=== PATIENT | female | born 1990 | race Two or more races ===

== ENCOUNTER 2017-12-24 17:26 | Emergency (ER) | payer MEDICAID, OTHER ==
[~2017-12-24] VITALS: Ht 165.1 cm; Wt 99.2 kg
[2017-12-24 18:30] LABS: CULTURE INDICATED? YES; MICROSCOPIC INDICATED
[2017-12-24 18:41] LABS: ALBUMIN 3.8 g/dL (3.4-5.0); ANION GAP 6 mmol/L (5-15); CALCIUM 8.4 mg/dL (8.5-10.1); CHLORIDE 108 mmol/L (98-107)
[2017-12-24 18:46] LABS: ALANINE AMINOTRANSFERASE 41 U/L (12-78); ALKALINE PHOSPHATASE 77 U/L (45-117); BILIRUBIN,TOTAL 0.6 mg/dL (0.2-1.0); CREATININE 0.84 mg/dL (0.55-1.02); TOTAL PROTEIN 7.6 g/dL (6.4-8.2)
[2017-12-24 19:09] LABS: MEAN CORPUSCULAR HEMOGLOBIN 28.9 pg (27.0-34.8); MEAN CORPUSCULAR HGB CONC 33.2 g/dL (32.4-35.8); MEAN CORPUSCULAR VOLUME 87.2 fL (80-100); MEAN PLATELET VOLUME 10.8 fL (7.4-10.4); PLATELET COUNT 217 x10^3/uL (130-400); RED BLOOD COUNT 4.33 x10^6/uL (3.82-5.3); RED CELL DISTRIBUTION WIDTH 13.5 % (9.6-15.2)
[2017-12-24 19:11] LABS: BASOPHILS # (AUTO) 0.12 x10^3/uL (0-0.1); BASOPHILS % (AUTO) 1 % (0-1); EOSINOPHILS # (AUTO) 0.11 x10^3/uL (0-0.4); EOSINOPHILS % (AUTO) 1 % (1-7); LYMPHOCYTES # (AUTO) 2.78 x10^3/uL (1-3.4); LYMPHOCYTES % (AUTO) 31 % (22-44); MD SCAN; MONOCYTES # (AUTO) 0.51 x10^3/uL (0.2-0.8); MONOCYTES % (AUTO) 6 % (2-9); NEUTROPHILS # (AUTO) 5.34 x10^3/uL (1.8-6.8); NEUTROPHILS % (AUTO) 60 % (42-75)
[2017-12-24 21:03] VITALS: BP 132/70
== END 2017-12-24 21:05 | disposition home or self-care (01) ==
LOC: ED 20:35
DX: O20.0 Threatened abortion (principal); N30.90 Cystitis, unspecified without hematuria; Z88.0 Allergy status to penicillin
CPT/HCPCS: 36415; 76801; 80053; 81001; 84702; 85025; 86901; 87077; 87086; 87186; 99285

== ENCOUNTER 2018-03-12 21:06 | Inpatient (IN) | payer MEDICAID ==
[~2018-03-12] VITALS: Ht 165.1 cm; Wt 99.6 kg
[2018-03-12] MEDS ORDERED: ONDANSETRON 2MG/ML, 2ML ONE (21:49)
[2018-03-12] MEDS ORDERED: MORPHINE SULFATE 4 MG/ML, 1ML ONE ×2 (21:49→23:06)
[2018-03-12] MEDS ORDERED: ONDANSETRON ODT 4 MG PO ONE (22:00)
[2018-03-12] MEDS ORDERED: SODIUM CHLORIDE FLUSH 10ML SYR IVF ONE (22:00)
[2018-03-12] MEDS: MORPHINE SULFATE 4 MG/ML, 1ML IVPush PRN ×2 (22:05→23:15)
[2018-03-12 22:17] LABS: BASOPHILS # (AUTO) 0.04 x10^3/uL (0-0.1); BASOPHILS % (AUTO) 0 % (0-1); EOSINOPHILS # (AUTO) 0.03 x10^3/uL (0-0.4); EOSINOPHILS % (AUTO) 0 % (1-7); LYMPHOCYTES # (AUTO) 2.13 x10^3/uL (1-3.4); LYMPHOCYTES % (AUTO) 16 % (22-44); MD NO; MEAN CORPUSCULAR HGB CONC 33.3 g/dL (32.4-35.8); MEAN CORPUSCULAR VOLUME 87.1 fL (80-100); MEAN PLATELET VOLUME 11.2 fL (7.4-10.4); MONOCYTES # (AUTO) 0.81 x10^3/uL (0.2-0.8); MONOCYTES % (AUTO) 6 % (2-9); NEUTROPHILS # (AUTO) 10.07 x10^3/uL (1.8-6.8); NEUTROPHILS % (AUTO) 77 % (42-75); PLATELET COUNT 164 x10^3/uL (130-400); RED BLOOD COUNT 4.16 x10^6/uL (3.82-5.3); RED CELL DISTRIBUTION WIDTH 13.7 % (9.6-15.2)
[2018-03-12 22:27] LABS: CHLORIDE 107 mmol/L (98-107)
[2018-03-12 22:28] LABS: ALANINE AMINOTRANSFERASE 42 U/L (12-78); ANION GAP 5 mmol/L (5-15); CALCIUM 8.8 mg/dL (8.5-10.1); CREATININE 0.81 mg/dL (0.55-1.02)
[2018-03-12] MEDS ORDERED: ONDANSETRON 2MG/ML, 2ML IVPush ONE (22:30)
[2018-03-12 22:32] LABS: ALKALINE PHOSPHATASE 68 U/L (45-117); BILIRUBIN,TOTAL 0.8 mg/dL (0.2-1.0); TOTAL PROTEIN 7.5 g/dL (6.4-8.2)
[2018-03-12] MEDS ORDERED: CIPROFLOXACIN/PMX 400MG/200ML 200 ML ONE (23:16)
[2018-03-12] MEDS ORDERED: METRONIDAZOLE PMX 500MG/100ML 100 ML IV ONE (23:30)
[2018-03-12] MEDS ORDERED: ONDANSETRON 2MG/ML, 2ML IVPush PRN (23:30)
[2018-03-12] MEDS ORDERED: morphine SULFATE 10 MG/ML, 1ML IVPush PRN (23:30)
[2018-03-12] MEDS ORDERED: POLYETHYLENE GLYCOL 17 GM PACKET PO PRN (23:30)
[2018-03-12] MEDS ORDERED: OXYcodone/APAP 5/325MG TABLET PO PRN (23:30)
[2018-03-12] MEDS ORDERED: hydrALAzine 20 MG/ML, 1ML IVPush PRN (23:30)
[2018-03-12] MEDS ORDERED: ACETAMINOPHEN 325 MG TABLET PO PRN (23:30)
[2018-03-12] MEDS ORDERED: ONDANSETRON ODT 4 MG PO PRN (23:30)
[2018-03-12] MEDS ORDERED: HYDROmorphone 2 MG/ML, 1ML IVPush PRN (23:30)
[2018-03-12] MEDS ORDERED: DOCUSATE 100 MG CAPSULE PO PRN (23:30)
[2018-03-12] MEDS ORDERED: CIPROFLOXACIN/PMX 400MG/200ML 200 ML IV ONE (23:30)
[2018-03-12 23:58] VITALS: BP 113/63
[2018-03-13 00:12] LABS: FREE T4 (FREE THYROXINE) 1.01 ng/dL (0.76-1.46); THYROID STIMULATING HORMONE 0.655 mIU/L (0.358-3.740)
[2018-03-13 00:15] LABS: HEMOGLOBIN A1C 5.1 % (4.2-6.3)
[2018-03-13] MEDS: D5%-0.9% NACL+KCL 20MEQ 1,000 ML IV SCH ×2 (01:37→13:00)
[2018-03-13] MEDS: CEFOXITIN 1,000 MG in DEXTROSE 5% 50 ML IV SCH ×3 (01:38→18:11)
[2018-03-13 03:00] VITALS: BP 121/73
[2018-03-13] MEDS: METRONIDAZOLE PMX 500MG/100ML 100 ML IV SCH ×3 (03:03→20:55)
[2018-03-13 05:20] LABS: BASOPHILS # (AUTO) 0.04 x10^3/uL (0-0.1); BASOPHILS % (AUTO) 0 % (0-1); EOSINOPHILS # (AUTO) 0.02 x10^3/uL (0-0.4); EOSINOPHILS % (AUTO) 0 % (1-7); LYMPHOCYTES % (AUTO) 18 % (22-44); MD NO; MEAN CORPUSCULAR HEMOGLOBIN 29.2 pg (27.0-34.8); MEAN CORPUSCULAR HGB CONC 33.6 g/dL (32.4-35.8); MEAN CORPUSCULAR VOLUME 86.9 fL (80-100); MEAN PLATELET VOLUME 11.8 fL (7.4-10.4); MONOCYTES # (AUTO) 0.84 x10^3/uL (0.2-0.8); MONOCYTES % (AUTO) 7 % (2-9); NEUTROPHILS # (AUTO) 8.86 x10^3/uL (1.8-6.8); NEUTROPHILS % (AUTO) 75 % (42-75); PLATELET COUNT 155 x10^3/uL (130-400); RED BLOOD COUNT 4.19 x10^6/uL (3.82-5.3)
[2018-03-13 05:33] LABS: CALCIUM 8.5 mg/dL (8.5-10.1); CHLORIDE 108 mmol/L (98-107)
[2018-03-13 05:38] LABS: ALANINE AMINOTRANSFERASE 37 U/L (12-78); ALBUMIN 3.4 g/dL (3.4-5.0); ALKALINE PHOSPHATASE 51 U/L (45-117); ANION GAP 7 mmol/L (5-15); BILIRUBIN,TOTAL 0.9 mg/dL (0.2-1.0); CHOL/HDL RATIO 2.2; CHOLESTEROL, TOTAL 98 mg/dL (140-239); CREATININE 0.73 mg/dL (0.55-1.02); HDL CHOL % 46 % (28-40); HDL CHOLESTEROL (DIRECT) 45 mg/dL (40-60); LDL CHOLESTEROL,CALCULATED 44 mg/dL (54-169); TOTAL PROTEIN 6.6 g/dL (6.4-8.2); TRIGLYCERIDES 44 mg/dL (50-200); VLDL CHOLESTEROL 9 mg/dL (0-25)
[2018-03-13 08:14] VITALS: BP 105/69
[2018-03-13 11:57] LABS: MICROSCOPIC AUTO
[2018-03-13 11:59] LABS: CULTURE INDICATED? YES
[2018-03-13] MEDS ORDERED: EPINEPHRINE 1 MG/ML, 1ML ONE (14:12)
[2018-03-13] MEDS ORDERED: BUPIVACAINE/PF 0.5% ONE (14:12)
[2018-03-13] MEDS ORDERED: MIDAZOLAM 1 MG/ML, 2ML ONE (14:12)
[2018-03-13] MEDS ORDERED: FENTANYL PF 250 MCG/5ML ONE (14:13)
[2018-03-13] MEDS ORDERED: ONDANSETRON 2MG/ML, 2ML IV PRN ×2 (15:00→17:30)
[2018-03-13] MEDS ORDERED: FENTANYL PF 100 MCG/2ML IV PRN (15:00)
[2018-03-13] MEDS ORDERED: MEPERIDINE/PF 25MG/0.5ML IVPush PRN (15:00)
[2018-03-13] MEDS ORDERED: HYDROmorphone 1 MG/ML, 1ML IV PRN (15:00)
[2018-03-13] MEDS ORDERED: OXYcodone 5 MG/5 ML ORAL.SOL UDC PO PRN (15:00)
[2018-03-13] MEDS ORDERED: GLYCOPYRROLATE 0.2MG/1ML, 5ML ONE (15:21)
[2018-03-13] MEDS ORDERED: SUCCINYLCHOLINE 20 MG/ML, 10ML ONE (15:21)
[2018-03-13] MEDS ORDERED: PROPOFOL 10 MG/ML, 20ML ONE (15:21)
[2018-03-13] MEDS ORDERED: DEXAMETHASONE 4 MG/ML, 1ML ONE (15:21)
[2018-03-13] MEDS ORDERED: NEOSTIGMINE 1 MG/ML, 10ML ONE (15:21)
[2018-03-13] MEDS ORDERED: ONDANSETRON 2MG/ML, 2ML ONE (15:21)
[2018-03-13] MEDS ORDERED: ROCURONIUM 10MG/ML,5ML ONE (15:21)
[2018-03-13] MEDS ORDERED: CEFAZOLIN 1,000 MG ONE (15:21)
[2018-03-13] MEDS ORDERED: OXYcodone 5 MG/5 ML ORAL.SOL UDC ONE (16:20)
[2018-03-13] MEDS ORDERED: OXYcodone IR 5MG TABLET PO PRN (17:30)
[2018-03-13] MEDS ORDERED: LACTATED RINGERS 1,000 ML IV SCH (17:30)
[2018-03-13] MEDS ORDERED: morphine SULFATE 10 MG/ML, 1ML IV PRN (17:30)
[2018-03-13] MEDS: KETOROLAC 30 MG/1 ML IV SCH (18:11)
[2018-03-13 19:45] VITALS: BP 106/58
[2018-03-13] MEDS: ACETAMINOPHEN 500 MG TABLET PO SCH (20:55)
[2018-03-13] MEDS ORDERED: ALBUTEROL SULFATE 2.5 MG/3 ML NPPB PRN (22:00)
[2018-03-14] MEDS: KETOROLAC 30 MG/1 ML IV SCH ×3 (00:42→12:00)
[2018-03-14 00:55] VITALS: BP 98/56
[2018-03-14] MEDS: CEFOXITIN 1,000 MG in DEXTROSE 5% 50 ML IV SCH ×2 (01:58→10:43)
[2018-03-14] MEDS: ACETAMINOPHEN 500 MG TABLET PO SCH ×2 (02:58→09:16)
[2018-03-14] MEDS: METRONIDAZOLE PMX 500MG/100ML 100 ML IV SCH ×2 (03:59→12:00)
[2018-03-14 04:57] VITALS: BP 108/64
[2018-03-14 08:37] VITALS: BP 110/70
== END 2018-03-14 14:23 | disposition home or self-care (01) | DRG 781 ==
LOC: ED 23:08 → EDIP 23:10 → 4NOR 23:40
PROVIDERS: ADMIT Internal Medicine; ATTEND Internal Medicine
PROC: 0FT44ZZ Resection of Gallbladder, Percutaneous Endoscopic Approach (ICD-10-PCS; principal; 2018-03-13 15:00)
DX: O99.611 Diseases of the digestive system complicating pregnancy, first trimester (principal); K80.00 Calculus of gallbladder with acute cholecystitis without obstruction; F12.90 Cannabis use, unspecified, uncomplicated; K82.8 Other specified diseases of gallbladder; D72.829 Elevated white blood cell count, unspecified; N83.8 Other noninflammatory disorders of ovary, fallopian tube and broad ligament; Z87.440 Personal history of urinary (tract) infections; Z90.721 Acquired absence of ovaries, unilateral; Z72.89 Other problems related to lifestyle; Z88.0 Allergy status to penicillin; Z3A.14 14 weeks gestation of pregnancy
CPT/HCPCS: 36415; 99285; J3490; 74181; 76700; 76801; 80053; 80061; 81001; 83036; 83690; 83735; 84439; 84443; 84702; 85025; 87086; 88304; 96374; 96375; 96376; J0171; J0690; J0744; J1100; J1885; J2250; J2405; J2704; J2710; J3010; J0330; J0694; J3480; J7120

== ENCOUNTER 2019-06-10 11:19 | Emergency (ER) | payer SELFPAY ==
[~2019-06-10] VITALS: Ht 165.1 cm; Wt 90.7 kg
--- NOTE | 2019-06-10 11:21 | NUR ---
CALLED FOR TRIAGE X1. PT IN BATHROOM.
[2019-06-10] MEDS ORDERED: ONDANSETRON ODT 4 MG PO ONE ×2 (11:30→12:30)
[2019-06-10] MEDS ORDERED: ONDANSETRON ODT 4 MG ONE (11:31)
[2019-06-10 12:52] LABS: BASOPHILS # (AUTO) 0.03 x10^3/uL (0-0.1); BASOPHILS % (AUTO) 1 % (0-1); EOSINOPHILS % (AUTO) 0 % (1-7); LYMPHOCYTES # (AUTO) 0.62 x10^3/uL (1-3.4); LYMPHOCYTES % (AUTO) 9 % (22-44); MD NO; MEAN CORPUSCULAR HEMOGLOBIN 30.1 pg (27.0-34.8); MEAN CORPUSCULAR HGB CONC 33.4 g/dL (32.4-35.8); MEAN CORPUSCULAR VOLUME 90.2 fL (80-100); MEAN PLATELET VOLUME 9.7 fL (7.4-10.4); MONOCYTES # (AUTO) 0.57 x10^3/uL (0.2-0.8); MONOCYTES % (AUTO) 9 % (2-9); NEUTROPHILS # (AUTO) 5.42 x10^3/uL (1.8-6.8); NEUTROPHILS % (AUTO) 82 % (42-75); PLATELET COUNT 143 x10^3/uL (130-400); RED BLOOD COUNT 4.08 x10^6/uL (3.82-5.3); RED CELL DISTRIBUTION WIDTH 12.7 % (9.6-15.2)
[2019-06-10] MEDS ORDERED: ACETAMINOPHEN 500 MG TABLET ONE (12:59)
[2019-06-10] MEDS ORDERED: ACETAMINOPHEN 500 MG TABLET PO ONE (13:00)
[2019-06-10 13:05] LABS: ALBUMIN 3.7 g/dL (3.4-5.0); ANION GAP 5 mmol/L (5-15); CALCIUM 8.2 mg/dL (8.5-10.1); CHLORIDE 109 mmol/L (98-107); CREATININE 0.94 mg/dL (0.55-1.02)
[2019-06-10 13:23] VITALS: BP 103/58
--- NOTE | 2019-06-10 13:33 | NUR ---
TASK RN: PT RESTING ON GURNEY. NADN. HERNDON.
== END 2019-06-10 14:21 | disposition home or self-care (01) ==
LOC: ED 13:50
DX: A08.4 Viral intestinal infection, unspecified (principal); B34.9 Viral infection, unspecified
CPT/HCPCS: 36415; 80048; 82040; 84703; 85025; 99283; Q0162

== ENCOUNTER 2021-02-06 19:09 | Emergency (ER) | payer MEDICAID ==
[~2021-02-06] VITALS: Ht 165.1 cm; Wt 103.9 kg
--- NOTE | 2021-02-06 19:54 | NUR ---
country director note: Pt to room from lobby.
[2021-02-06] MEDS ORDERED: ACETAMINOPHEN 325 MG TABLET PO ONE (20:30)
[2021-02-06] MEDS ORDERED: ONDANSETRON ODT 8 MG PO ONE (20:30)
--- NOTE | 2021-02-06 21:18 | NUR ---
PD at bedside
[2021-02-06] MEDS ORDERED: ONDANSETRON ODT 4 MG ONE (21:22)
[2021-02-06] MEDS ORDERED: ACETAMINOPHEN 325 MG TABLET ONE (21:24)
--- NOTE | 2021-02-06 21:59 | NUR ---
Ambulated to BR w/o difficulty
[2021-02-06] MEDS ORDERED: HYDROcodone/APAP 5/325 TABLET ONE (22:33)
[2021-02-06] MEDS ORDERED: HYDROcodone/APAP 5/325 TABLET PO ONE (23:00)
[2021-02-06] MEDS ORDERED: CYCLOPENTOLATE OPHTH SOLN 1%, 15ML LEFTEYE ONE (23:30)
--- NOTE | 2021-02-06 23:34 | NUR ---
notified pharmacy of ordered eye drops
[2021-02-07] MEDS ORDERED: IBUPROFEN 600 MG TABLET PO ONE
[2021-02-07] MEDS ORDERED: IBUPROFEN 600 MG TABLET ONE (00:01)
--- NOTE | 2021-02-07 00:01 | NUR ---
CARE ASSUMED FOR DC. PT DC'D HOME WITH RX X 2 AND UNDERSTANDING OF INSTRUCTION. EYE GTTS HOME WITH PT. PT AWARE NARC PAIN MED RX AT [facility]. PT TO DC DESK, GAIT STEADY.
[2021-02-07 00:02] VITALS: BP 115/64
== END 2021-02-07 00:04 | disposition home or self-care (01) ==
LOC: ED 23:02
DX: S02.32XA Fracture of orbital floor, left side, initial encounter for closed fracture (principal); S00.12XA Contusion of left eyelid and periocular area, initial encounter; H20.9 Unspecified iridocyclitis; R11.2 Nausea with vomiting, unspecified; R42 Dizziness and giddiness; Z88.0 Allergy status to penicillin; Y04.8XXA Assault by other bodily force, initial encounter; Y93.89 Activity, other specified; Y92.009 Unspecified place in unspecified non-institutional (private) residence as the place of occurrence of the external cause; Y99.8 Other external cause status
CPT/HCPCS: 70450; 70486; 99285; Q0162